=== PATIENT | male | born 1990 | race American Indian/Alaskan Native ===

== ENCOUNTER 2017-03-11 06:29 | Emergency (ER) | payer OTHER ==
[2017-03-11 06:47] VITALS: BP 127/73
[2017-03-11] MEDS ORDERED: TYLENOL PO ONE (06:52)
[2017-03-11] MEDS ORDERED: TYLENOL ONE (06:56)
[2017-03-11] MEDS ORDERED: NORCO 5/325 PO ONE (07:43)
[2017-03-11] MEDS ORDERED: FLEXERIL PO ONE (07:43)
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
--- NOTE | 2017-03-11 08:28 | XRay Report ---
ROUTINE CHEST, TWO VIEWS: Pain. PA and lateral views demonstrate the heart and mediastinal contour to be of normal size and shape. The lungs are clear and fully expanded and the soft tissues and bony structures are normal. IMPRESSION: Normal study.
--- NOTE | 2017-03-11 08:29 | XRay Report ---
RIGHT SHOULDER: Shoulder pain. Routine views demonstrate normal bony and soft tissue structures with normal joint alignment of the shoulder. IMPRESSION: Normal study.
--- NOTE | 2017-03-11 08:30 | XRay Report ---
AP AND LATERAL CERVICAL SPINE: Neck, back pain. The vertebral bodies are well mineralized and normal in alignment and vertebral height with well preserved interspace distances. The visualized portions of the posterior elements are normal. IMPRESSION: Normal study.
== END 2017-03-11 09:43 | disposition home or self-care (01) ==
LOC: ED 06:29
DX: S16.1XXA Strain of muscle, fascia and tendon at neck level, initial encounter (principal); M25.511 Pain in right shoulder; M54.6 Pain in thoracic spine; F17.200 Nicotine dependence, unspecified, uncomplicated; Z91.013 Allergy to seafood; V49.9XXA Car occupant (driver) (passenger) injured in unspecified traffic accident, initial encounter; Y92.488 Other paved roadways as the place of occurrence of the external cause; Y93.89 Activity, other specified; Y99.8 Other external cause status
CPT/HCPCS: 71020; 72040